=== PATIENT | female | born 1995 | race Caucasian/White ===

== ENCOUNTER 2018-10-27 02:36 | Observation (INO) | payer MEDICAID ==
[~2018-10-27] VITALS: Ht 154.9 cm; Wt 67.0 kg
[2018-10-27 02:42] VITALS: BP 105/73
[2018-10-27] MEDS ORDERED: PNV1TABL50 MT (03:52)
== END 2018-10-27 04:05 | disposition home or self-care (01) ==
LOC: ER 02:36 → INTOOBSV 03:18 → OB TRIAGE 03:18
PROVIDERS: ADMIT Obstetrics & Gynecology; ATTEND Obstetrics & Gynecology
DX: O62.9 Abnormality of forces of labor, unspecified (principal); Z3A.39 39 weeks gestation of pregnancy
CPT/HCPCS: 99284; G0378; 99285

== ENCOUNTER 2018-10-28 08:26 | Inpatient (IN) | payer MEDICAID ==
[~2018-10-28] VITALS: Ht 154.9 cm; Wt 82.6 kg
[~2018-10-28 08:26] MED LIST: PNV1TABL50 MT
[2018-10-28] MEDS: LACTATED RINGERS 1,000 ML IV SCH ×3 (09:24→11:58)
[2018-10-28] MEDS ORDERED: LIDOCAINE HCL 1% 20ML VIAL (Pyxis) INJ INFIL SCH (09:30)
[2018-10-28] MEDS ORDERED: NALOXONE HCL 0.4 MG/ML 1ML VIAL IM PRN (09:30)
[2018-10-28] MEDS ORDERED: METHYLERGONOVINE MALEATE 0.2 MG/ML IM PRN (09:30)
[2018-10-28] MEDS ORDERED: BUTORPHANOL TARTRATE 2 MG/ML VIAL IV PRN (09:30)
[2018-10-28] MEDS ORDERED: CARBOPROST TROMETHAMINE 250 MCG/ML AMPUL IM PRN (09:30)
[2018-10-28 10:01] LABS: CLARITY URINE CLEAR (CLEAR); COLOR URINE YELLOW (YELLOW); KETONES URINE NEGATIVE (NEGATIVE); LEUKOCYTE ESTERASE URINE NEGATIVE (NEGATIVE); NITRITE URINE NEGATIVE (NEGATIVE); OCCULT BLOOD URINE NEGATIVE (NEGATIVE); PH URINE 6.5 (4.5-8.0); PROTEIN URINE NEGATIVE (NEGATIVE); SPECIFIC GRAVITY URINE 1.017 (1.005-1.030); UROBILINOGEN URINE 0.2 E.U./dL (0.2-1.0)
[2018-10-28 10:02] LABS: INR 0.9; PARTIAL THROMBOPLASTIN TIME 27.3 sec (23.4-31.0); PROTHROMBIN TIME 9.5 sec (9.1-11.1)
[2018-10-28 10:10] LABS: BASOPHILS % 0.3 % (0.0-2.0); EOSINOPHILS % 0.4 % (0.0-5.0); HEMATOCRIT. 32.9 % (36.0-48.0); HEMOGLOBIN. 10.9 g/dL (12.0-16.0); LYMPHOCYTES % 12.9 % (20.0-50.0); MEAN CORPUSCULAR HEMOGLOBIN 29.2 pg (28.0-32.0); MEAN CORPUSCULAR VOLUME 88.5 fL (81.0-99.0); MEAN PLATELET VOLUME 8.4 fl (7.4-10.4); MONOCYTES % 8.3 % (2.0-8.0); NEUTROPHILS % 78.1 % (40.0-76.0); PLATELET 272 x1000/uL (130-400); RED BLOOD CELL COUNT 3.71 mill/uL (4.2-5.4); RED CELL DISTRIBUTION WIDTH 14.4 % (11.6-14.6)
[2018-10-28 11:26] LABS: *AMPHETAMINES SCREEN URINE NEGATIVE (NEGATIVE)
[2018-10-28 11:27] LABS: *BARBITURATES SCREEN URINE NEGATIVE (NEGATIVE); *BENZODIAZEPINES SCREEN URINE NEGATIVE (NEGATIVE); *COCAINE SCREEN URINE NEGATIVE (NEGATIVE); METHADONE URINE SCREEN NEGATIVE (NEGATIVE); OPIATES URINE SCREEN NEGATIVE (NEGATIVE); PHENCYCLIDINE URINE SCREEN NEGATIVE (NEGATIVE)
[2018-10-28 11:28] LABS: CANNABINOID URINE SCREEN NEGATIVE (NEGATIVE)
[2018-10-28] MEDS ORDERED: BUPIVACAINE HCL/NS/PF EPIDURAL 100 ML EP ONE (11:28)
[2018-10-28 11:41] LABS: HEPATITIS B SURFACE ANTIGEN NEGATIVE
[2018-10-28] MEDS ORDERED: LACTATED RINGERS 1,000 ML IV SCH (12:00)
[2018-10-28] MEDS: DEXT 5%/LR + PITOCIN 20UNITS/L 1,000 ML IV SCH ×2 (13:09→17:35)
[2018-10-28] MEDS: IBUPROFEN 800MG TABLET PO PRN (18:17)
[2018-10-28 20:30] VITALS: BP 102/56
[2018-10-28 23:30] VITALS: BP 100/55
[2018-10-29 06:00] VITALS: BP 102/54
[2018-10-29 08:00] VITALS: BP 105/71
[2018-10-29] MEDS: IBUPROFEN 800MG TABLET PO PRN ×2 (08:45→23:01)
[2018-10-29] MEDS: DOCUSATE SODIUM 100MG CAPSULE PO SCH ×2 (09:00→22:59)
[2018-10-29] MEDS ORDERED: BISACODYL 10MG SUPP PR SCH (09:30)
[2018-10-29] MEDS ORDERED: BENZOCAINE/LANOLIN/ALOE VERA SPRAY TOP PRN (09:30)
[2018-10-29 18:03] VITALS: BP 95/53
[2018-10-29 20:00] VITALS: BP 91/46
[2018-10-30] VITALS: BP 97/52
[2018-10-30 04:00] VITALS: BP 98/54
[2018-10-30 09:00] VITALS: BP 102/59
[2018-10-30] MEDS ORDERED: TETANUS, DIPHTHERIA, PERTUSSIS VAC/PF 0.5ML (>7YR OLD) IM ONE (10:00)
[2018-10-30] MEDS ORDERED: INFLUENZA VIRUS VACCINE(AFLURIA) 0.5ML SYR IM ONE (12:15)
== END 2018-10-30 13:20 | disposition home or self-care (01) | DRG 560 ==
LOC: 8 EST LDRP 08:26 → OBSVTOIN 08:26 → 8 EST A/PP 19:22 → 8EST 20:00
PROVIDERS: ADMIT Obstetrics & Gynecology; ATTEND Obstetrics & Gynecology
PROC: 10E0XZZ Delivery of Products of Conception, External Approach (ICD-10-PCS; principal; 2018-10-28)
PROC: 0W8NXZZ Division of Female Perineum, External Approach (ICD-10-PCS; 2018-10-28)
PROC: 3E0R3BZ Introduction of Anesthetic Agent into Spinal Canal, Percutaneous Approach (ICD-10-PCS; 2018-10-28)
PROC: 00HU33Z Insertion of Infusion Device into Spinal Canal, Percutaneous Approach (ICD-10-PCS; 2018-10-28)
DX: O99.03 Anemia complicating the puerperium (principal); D64.9 Anemia, unspecified; Z37.0 Single live birth; Z3A.40 40 weeks gestation of pregnancy
CPT/HCPCS: 36415; 80305; 86592; 86703; 86762; 86850; 86900; 87340; 90686; 90715; G0378; J2590; J3490; J7120; A4315